=== PATIENT | male | born 1995 | race African-American/Black ===

== ENCOUNTER 2019-06-24 23:20 | Emergency (ER) | payer SELFPAY ==
[~2019-06-24] VITALS: Wt 70.0 kg
[2019-06-24 23:20] VITALS: Wt 70.0 kg
[~2019-06-24 23:20] MED LIST: NALO4SPR NS
[2019-06-24 23:30] VITALS: BP 122/61; PULSE 72; RESP 10
[2019-06-24] MEDS ORDERED: NALOXONE 2 MG SYG IV ONE (23:30)
== END 2019-06-25 03:09 | disposition home or self-care (01) ==
LOC: E/R 23:20 → EDBD 23:20 → E/R 06-25 03:09
DX: T39.1X1A Poisoning by 4-Aminophenol derivatives, accidental (unintentional), initial encounter (principal); T40.2X1A Poisoning by other opioids, accidental (unintentional), initial encounter; Y92.9 Unspecified place or not applicable
CPT/HCPCS: 36415; 96374